=== PATIENT | female | born 1970 | race Caucasian/White ===

== ENCOUNTER 2016-05-09 12:24 | Emergency (ER) | payer OTHER ==
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
[~2016-05-09 12:24] MED LIST: ALBUTEROL20 ml INH; AMLODIPINE BESY10 MG; AMOXICILLIN PO; ASMANEX HFA13 GM; ATENOLOL25 MG PO; B12 5,000 MCG1 EACH PO; BACTRIM DS TABL1 TA1 PO; BACTRIM DS TABL1 TA2 PO; BACTROBAN22 GM EXT; BENADRYL ALLERG25 M1 PO; BENADRYL25 M3 PO; BENZONATATE PO; BREO ELLIPTA I1 EACH INH; CETIRIZINE HCL10 MG PO; CLINDAMYCIN HC300 MG PO; CLONIDINE HCL0.1 MG PO; COMBIVENT U/D3 M2; DOXYCYCLINE PO; EFFEXOR75 MG PO; ELIMITE60 GM TOP; HYDRALAZINE HC100 MG PO; IBUPROFEN800 MG PO; KLONOPIN PO; LASIX20 MG PO; LISINOPRIL20 MG PO; METOPROLOL SUCC50 MG PO; MOBIC PO; MONTELUKAST SOD10 MG PO; MULTI VITAMIN1 EACH; NAPROSYN500 MG PO; NAPROXEN PO; NORVASC PO; OMEPRAZOLE40 M1 PO; PEN-VEE K PO; PRAVASTATIN SOD20 MG PO; PREDNISONE PO; PREDNISONE5 M1 PO; PROZAC PO; STIOLTO RESPIMAT4 GM; TAMIFLU75 M1 PO; TESSALON PERLE100 M1 DOB; TOPAMAX50 MG; VIBRAMYCIN100 M1 PO; VICODIN PO; VITAMIN D250000 UNIT PO; VOLTAREN75 MG PO; WELLBUTRIN PO; ZITHROMAX PO
== END 2016-05-09 14:06 | disposition home or self-care (01) ==
LOC: SED 12:24
DX: S16.1XXA Strain of muscle, fascia and tendon at neck level, initial encounter (principal); S39.012A Strain of muscle, fascia and tendon of lower back, initial encounter; S29.012A Strain of muscle and tendon of back wall of thorax, initial encounter; E11.9 Type 2 diabetes mellitus without complications; E78.5 Hyperlipidemia, unspecified; J44.9 Chronic obstructive pulmonary disease, unspecified; F90.9 Attention-deficit hyperactivity disorder, unspecified type; F31.9 Bipolar disorder, unspecified; Z87.891 Personal history of nicotine dependence; V49.50XA Passenger injured in collision with unspecified motor vehicles in traffic accident, initial encounter; Y92.410 Unspecified street and highway as the place of occurrence of the external cause
CPT/HCPCS: 72040; 72072; 74176; 96372; 99284; J1885

== ENCOUNTER → 2016-07-17 | Outpatient (CLI) | payer OTHER ==
[~2016-07-17] MED LIST changes: +ALBUTEROL17 GM INH; +AMLODIPINE BESY10 MG PO; +ASMANEX110 MC1 INH; +BYSTOLIC2.5 MG PO; +CLONIDINE PO; +COMBIVENT RESPIM4 GM INH; +COZAAR25 MG PO; +GLUCOPHAGE500 MG PO; +PRAVACHOL20 MG PO; +QUDEXY XR50 MG PO; +STIOLTO RESPIMAT4 GM INH; +VENLAFAXINE HC150 M1 PO; +VITAMIN D2400 UNIT PO; +ZYRTEC10 M1 PO
--- NOTE | ~2016-07-17 | US134 ---
[facility] A Service of [facility] & [facility] RADIOLOGY TEXT RESULTS PATIENT: DIANE CHAN LOCATION: [facility] : [birth year] UNIT #: [id number] AGE: [address]: ELLY MILLER APRN SEX: F ORDER DR: [id number] [address] [address] [id number] O MR#: [id number] Acc #: [id number] NAME: DIANE CHAN : 1970 SEX: F STUDY DATE/TIME: 07/17/2016 13:04 UNIT: SGUS ROOM: STUDY DESCRIPTION: US Transvaginal Attending Physician: Elly Miller Aprn Referring Physician: Elly Miller Aprn Ordering Physician: Elly Miller Aprn Primary Care Physician: Elly Miller Aprn MEDICAL IMAGING REPORT This report is preliminary unless electronic signature is present. EXAM Transabdominal and transvaginal pelvic ultrasound 07/17/2016 HISTORY Incidental ovarian mass versus cyst on the 05/09/2016 CT abdomen and pelvis. Patient states she has had abdominal pain for about a month. History partial hysterectomy. COMPARISON CT abdomen and pelvis without contrast 05/09/2016. No previous pelvic ultrasound at this institution for comparison. TECHNIQUE Transabdominal imaging was performed for generalized visualization of the pelvic structures and transvaginal imaging was performed for more detail evaluation of the adnexal regions. FINDINGS The uterus is surgically absent. No pelvic free fluid is identified. Urinary bladder appears unremarkable. Right ovary measures 2.3 x 1.5 x 2.4 cm. No right ovarian cystic or solid lesion is identified. The previously described 3.4 cm right ovarian cyst on the 05/09/2016 CT has no sonographic correlate and may have resolved in the interval. The left ovary is best visualized on transabdominal imaging, not seen on transvaginal imaging. Left ovary measures approximate 2.8 x 1.7 x 2.4 cm and contains a tiny hypoechoic focus within it, probably representing a mildly complex cyst, measuring 1.3 x 1.7 x 1 cm, which is smaller than on the previous 05/09/2016 examination where it measured nearly 3 cm. Color flow was documented to left ovary. [facility]. [facility] A Service of [facility] & [facility] RADIOLOGY TEXT RESULTS PATIENT: DIANE CHAN LOCATION: SG : [birth year] UNIT #: [id number] AGE: [address]: ELLY MILLER CCU NURSE SEX: F ORDER DR: IMPRESSION 1. Tiny hypoechoic focus in the left ovary, likely representing a mildly complex cyst measures about 1.7 cm maximally, significantly smaller than on the 05/09/2016 examination where a cystic-type lesion at this location measured nearly 3 cm. 2. Normal sonographic appearance of the right ovary without cystic or solid abnormality. 3. Color flow was documented to each ovary. 4. Hysterectomy. Dictated by... Uzma Lincoln M.D. THIS IS AN ELECTRONICALLY VERIFIED REPORT Uzma Lincoln M.D. at 07/18/2016 7:09 AM JAKE/darrick TD: 07/17/2016 22:39 JOB #: [id number] MEDICAL IMAGING REPORT Page 1 of 1
== END | disposition home or self-care (01) ==
LOC: SGUS 13:10
DX: N85.8 Other specified noninflammatory disorders of uterus (principal); N83.209 Unspecified ovarian cyst, unspecified side; N83.8 Other noninflammatory disorders of ovary, fallopian tube and broad ligament; Z90.710 Acquired absence of both cervix and uterus
CPT/HCPCS: 76830; 76856

== ENCOUNTER 2016-09-24 20:21 | Emergency (ER) | payer OTHER ==
[~2016-09-24] VITALS: Ht 172.7 cm; Wt 103.0 kg
--- NOTE | ~2016-09-24 | EKG ---
PATIENT: DIANE CHAN UNIT #: [id number] Ventricular Rate: 47 BPM Atrial Rate: 47 BPM P-R Interval: 134 ms QRS Duration: 86 ms Q-T Interval: 456 ms QTC Calculation(Bezet): 403 ms P [place]: 42 degrees Calculated R [place]: 30 degrees Calculated T [place]: 49 degrees Diagnosis Line: Marked sinus bradycardia Diagnosis Line: Abnormal ECG Diagnosis Line: When compared with ECG of 25-FEB-2016 09:52, Diagnosis Line: No significant change was found Diagnosis Line: Confirmed by MARY ASHTON MD ([id number]) on Diagnosis Line: 09/28/2016 3:51:57 PM INTERPRETING MD: ТАТЬЯНА
--- NOTE | ~2016-09-24 | CR72 ---
[facility]. [facility] A Service of [facility] & [facility] RADIOLOGY TEXT RESULTS PATIENT: DIANE CHAN LOCATION: SED : [birth year] UNIT #: [id number] AGE: [address]: Smiley Gee SEX: F ORDER DR: [id number] [address] [address] [id number] E MR#: [id number] Acc #: [id number] NAME: DIANE CHAN : 1970 SEX: F STUDY DATE/TIME: 09/24/2016 20:47 UNIT: SED ROOM: STUDY DESCRIPTION: CR Chest Single View Portable Attending Physician: Smiley Gee Pa-C Ordering Physician: Geoff Smith M.D. Primary Care Physician: Elly Jay Aprn MEDICAL IMAGING REPORT This report is preliminary unless electronic signature is present. EXAM Portable chest HISTORY Lower chest pain, onset tonight, high blood pressure. COMPARISON 02/25/2016 FINDINGS Portable view of the chest demonstrates no infiltrates or effusions. Heart, mediastinum and great vessels unremarkable. Postsurgical changes are of the right clavicle from previous reconstruction. No pneumothorax. Dictated by... Tyrone Solo M.D. THIS IS AN ELECTRONICALLY VERIFIED REPORT Tyrone Solo M.D. at 09/25/2016 5:38 PM Luis TD: 09/25/2016 09:04 JOB #: [id number] MEDICAL IMAGING REPORT Page 1 of 1
[~2016-09-24 20:21] MED LIST changes: -ALBUTEROL17 GM INH; -AMLODIPINE BESY10 MG PO; -ASMANEX110 MC1 INH; -BYSTOLIC2.5 MG PO; -CLONIDINE PO; -COMBIVENT RESPIM4 GM INH; -COZAAR25 MG PO; -GLUCOPHAGE500 MG PO; -PRAVACHOL20 MG PO; -QUDEXY XR50 MG PO; -STIOLTO RESPIMAT4 GM INH; -VENLAFAXINE HC150 M1 PO; -VITAMIN D2400 UNIT PO; -ZYRTEC10 M1 PO
[2016-09-24] MEDS ORDERED: COMBIVENT RESPIM4 GM INH (20:36)
[2016-09-24] MEDS ORDERED: GLUCOPHAGE500 MG PO (20:37)
[2016-09-24] MEDS ORDERED: ALBUTEROL17 GM INH (20:37)
[2016-09-24] MEDS ORDERED: LASIX20 MG PO (20:37)
[2016-09-24] MEDS ORDERED: VENLAFAXINE HC150 M1 PO (20:37)
[2016-09-24] MEDS ORDERED: COZAAR25 MG PO (20:38)
[2016-09-24] MEDS ORDERED: CLONIDINE PO (20:38)
[2016-09-24] MEDS ORDERED: BYSTOLIC2.5 MG PO (20:38)
[2016-09-24] MEDS ORDERED: VITAMIN D2400 UNIT PO (20:39)
[2016-09-24] MEDS ORDERED: MONTELUKAST SOD10 MG PO (20:39)
[2016-09-24] MEDS ORDERED: PRAVACHOL20 MG PO (20:39)
[2016-09-24] MEDS ORDERED: HYDRALAZINE HC100 MG PO (20:39)
[2016-09-24] MEDS ORDERED: AMLODIPINE BESY10 MG PO (20:39)
[2016-09-24] MEDS ORDERED: ZYRTEC10 M1 PO (20:40)
[2016-09-24] MEDS ORDERED: STIOLTO RESPIMAT4 GM INH (20:40)
[2016-09-24] MEDS ORDERED: QUDEXY XR50 MG PO (20:40)
[2016-09-24] MEDS ORDERED: ASMANEX110 MC1 INH (20:41)
[2016-09-24] MEDS ORDERED: PROZAC PO (20:41)
[2016-09-24] MEDS ORDERED: OMEPRAZOLE40 M1 PO (20:41)
[2016-09-24 20:57] LABS: BASOPHIL% 0.3 % (0-2.5); HEMATOCRIT 39.3 % (35.0-45.0); HEMOGLOBIN 13.5 gm/dL (12.0-16.0); LYMPHOCYTE# 1.2 X10e3 (1.0-3.5); LYMPHOCYTE% 11.5 % (17.0-45.0); MEAN CELL VOLUME 94.9 FL (83-96); MEAN CORPUSCULAR HEMOGLOBIN 32.7 PG (28-34); MEAN CORPUSCULAR HGB CONC 34.4 g/dL (30-36); MEAN PLATELET VOLUME 9.3 FL (6.5-11.5); MONOCYTE# 0.3 X10e3 (0-1.0); MONOCYTE% 2.5 % (3.0-12.0); NEUTROPHIL# 8.6 X10e3 (1.5-7.1); NEUTROPHIL% 85.7 % (40-75); PLATELET COUNT 235 X10e3 (140-420); RED BLOOD COUNT 4.14 X10e (3.90-5.30); RED CELL DISTRIBUTION WIDTH 12.9 % (11.0-15.5)
[2016-09-24 21:04] LABS: DIFF IND NO
[2016-09-24 21:08] LABS: ALBUMIN SERUM 3.9 g/dL (3.5-5.0); ALKALINE PHOSPHATASE 69 U/L (32-92); ALT (SGPT) 12 U/L (10-40); AST (SGOT) 11 U/L (10-42); BILIRUBIN,TOTAL 0.5 mg/dL (0.2-2.0); BLOOD UREA NITROGEN 11 mg/dL (9-23); CALCIUM SERUM 8.3 mg/dL (8.4-10.2); CARBON DIOXIDE 20 mmol/L (22-31); CHLORIDE 107 mmol/L (100-111); GLOM FILT RATE Estimated 67.1 mL/min (>60); GLUCOSE FASTING 154 mg/dL (70-110); MAGNESIUM 1.9 mg/dL (1.6-3.0); POTASSIUM 3.8 mmol/L (3.5-5.1); PROTEIN TOTAL SERUM 6.4 g/dL (6.0-8.3); SODIUM 132 mmol/L (135-145)
[2016-09-24 21:09] LABS: POC - CKMB <1.0 ng/mL (0.0-7.9); POC - TROPONIN <0.05 ng/mL (<=0.05)
[2016-09-24 21:09] LABS: BILIRUBIN, DIRECT <0.1 mg/dL (0.0-0.2); BILIRUBIN,INDIRECT 0.4 mg/dL (0.0-0.9)
[2016-09-24 21:14] LABS: INR 1.1; PROTHROMBIN TIME (PATIENT) 12.1 SECONDS (9.5-12.4)
[2016-09-24 21:21] LABS: PARTIAL THROMBOPLASTIN TIME 24.4 SECONDS (25.6-38.1)
[2016-09-24 21:30] LABS: THYROID STIMULATING HORMONE 0.24 uIU/ml (0.34-5.60)
[2016-09-24 22:32] LABS: POC - CKMB <1.0 ng/mL (0.0-7.9); POC - TROPONIN <0.05 ng/mL (<=0.05)
[2016-09-25 11:08] LABS: FREE THYROXIN (T4) 0.77 ng/dL (0.58-1.64)
== END 2016-09-25 01:44 ==
LOC: SED 20:21
PROVIDERS: Emergency Medicine; Physician Assistant
DX: R00.1 Bradycardia, unspecified (principal); E11.9 Type 2 diabetes mellitus without complications; E78.5 Hyperlipidemia, unspecified; I10 Essential (primary) hypertension; J44.9 Chronic obstructive pulmonary disease, unspecified; Z90.710 Acquired absence of both cervix and uterus; Z88.2 Allergy status to sulfonamides; Z88.8 Allergy status to other drugs, medicaments and biological substances; Z79.84 Long term (current) use of oral hypoglycemic drugs; Z79.899 Other long term (current) drug therapy
CPT/HCPCS: 36415; 71010; 80048; 80076; 82553; 83735; 83880; 84439; 84443; 84484; 85025; 85610; 85730; 93005; 99285; J0360